=== PATIENT | male | born 1945 | race Caucasian/White ===

== ENCOUNTER → 2024-06-03 | Outpatient (CLI) | payer MEDICARE ==
[2024-06-03 15:29] LABS: BASO % 0.3 % (0.0-1.0); EOS % 0.2 % (0.0-3.0); HEMATOCRIT 42.8 % (42.0-52.0); HEMOGLOBIN 13.7 g/dl (13.5-17.5); LYMPH # 0.9 10^3/uL (1.5-5.0); LYMPH % 8.7 % (24.0-44.0); MEAN CORPUSCULAR HEMOGLOBIN 29.3 pg (27.0-33.0); MEAN CORPUSCULAR VOLUME 91.5 fl (80.0-96.0); MONO # 0.5 10^3/uL (0.0-0.8); MONO % 4.7 % (2.0-8.0); NEUTROPHILS # 8.8 10^3/uL (1.5-8.5); NEUTROPHILS % 85.1 % (36.0-66.0); PLATELET COUNT, AUTOMATED 317 10^3/uL (150-450); RED BLOOD COUNT 4.68 10^6/uL (4.30-6.10); WHITE BLOOD COUNT 10.3 10^3/uL (4.0-10.0)
[2024-06-03 15:48] LABS: ERYTHROCYTE SEDIMENTATION RATE 41 mm/hr (0-20)
== END ==
LOC: M PLALAB 13:29
PROVIDERS: ATTEND Internal Medicine Infectious Disease
DX: M35.3 Polymyalgia rheumatica (principal)

== ENCOUNTER → 2024-07-24 | Outpatient (REF) | payer MEDICARE | LOC: M SFHCRHEU 08:39 | PROVIDERS: ATTEND Internal Medicine Rheumatology | DX: M35.3 Polymyalgia rheumatica (principal) ==